=== PATIENT | female | born 1995 | race Hispanic/Latino ===

== ENCOUNTER 2023-08-16 21:21 | Emergency (ER) | payer BC ==
[~2023-08-16] VITALS: Ht 165.1 cm; Wt 61.2 kg
[2023-08-16] MEDS ORDERED: ROCURONIUM BROMIDE 10MG/1ML 5ML VL IV ONE (21:22)
[2023-08-16 21:42] LABS: EOSINOPHILS # (AUTO) 0.17 K/uL (0.00-0.70); EOSINOPHILS % (AUTO) 3.3 % (0.0-8.0); HEMATOCRIT 36.5 % (36-48); IMMATURE GRANULOCYTE ABSOLUTE 0.01 K/uL (0-1); LYMPHOCYTES # (AUTO) 2.9 K/uL (1.0-4.8); MEAN CORPUSCULAR HEMOGLOBIN 29.2 pg (27.0-33.0); MEAN CORPUSCULAR VOLUME 86.1 fL (79-99); MONOCYTES # (AUTO) 0.5 K/uL (0.1-1.0); MONOCYTES % (AUTO) 8.7 % (3.0-13.0); NEUTROPHILS # (AUTO) 1.7 K/uL (1.8-7.7); NEUTROPHILS % (AUTO) 32.8 % (40.0-77.0); PLATELET COUNT (AUTO) 270 K/uL (130-400); RED BLOOD CELL COUNT(AUTO) 4.24 MIL/uL (4.00-5.50); RED CELL DISTRIBUTION WIDTH 12.7 % (11.0-15.5); WHITE BLOOD COUNT (AUTO) 5.2 K/uL (4.8-10.8)
[2023-08-16 21:50] LABS: APPEARANCE,URINE CLEAR (CLEAR); BILIRUBIN,URINE NEGATIVE (NEGATIVE); COLOR,URINE YELLOW (YELLOW); GLUCOSE, URINE (UA) NEGATIVE (NEGATIVE); KETONES,URINE NEGATIVE (NEGATIVE); LEUKOCYTE ESTERASE ,URINE NEGATIVE Leu/uL (NEGATIVE); NITRATE,URINE NEGATIVE (NEGATIVE); OCCULT BLOOD,URINE NEGATIVE (NEGATIVE); PROTEIN,URINE NEGATIVE (NEGATIVE)
[2023-08-16 21:51] LABS: ADD UA MICROSCOPIC NO
[2023-08-16 21:52] LABS: HCG,QUALITATIVE URINE NEGATIVE (NEGATIVE)
[2023-08-16] MEDS: LEVETIRACETAM 500 MG/5 ML SD VIAL IV SCH ×3 (22:00→23:00)
[2023-08-16] MEDS: DIAZEPAM 5 MG/ML 2 ML SYG IVP ONE (22:11)
[2023-08-16] MEDS: DIAZEPAM 5 MG/ML 2 ML SYG ONE (22:14)
[2023-08-16 22:17] LABS: AMPHET/METH SCREEN,URINE NEGATIVE (NEGATIVE); BARBITURATE SCREEN, URINE NEGATIVE (NEGATIVE); BENZODIAZEPINES SCREEN,URINE NEGATIVE (NEGATIVE); CANNABINOID SCREEN,URINE NEGATIVE (NEGATIVE); COCAINE SCREEN,URINE NEGATIVE (NEGATIVE); OPIATE SCREEN,URINE NEGATIVE (NEGATIVE); PHENCYCLIDINE SCREEN,URINE NEGATIVE (NEGATIVE)
[2023-08-16 22:20] LABS: ALBUMIN 3.7 g/dL (3.5-5.0); BILIRUBIN,TOTAL 0.2 mg/dL (0.2-1.0); CREATININE 0.7 mg/dL (0.5-1.0); POTASSIUM 4.2 mmol/L (3.5-5.1); TOTAL PROTEIN, SERUM 7.2 g/dL (6.0-8.3)
[2023-08-16] MEDS: LORAZEPAM 2 MG/ML 1 ML VIAL IVP ONE (22:30)
[2023-08-16] MEDS ORDERED: PHARMACY COMMUNICATION MISC SCH (22:30)
[2023-08-16] MEDS: FENTANYL 1000MCG+NS 100ML 100 ML IV SCH (22:57)
[2023-08-16] MEDS: ETOMIDATE 20MG VIAL IVP ONE (22:57)
[2023-08-16] MEDS: ROCURONIUM BROMIDE IV SCH (22:57)
[2023-08-16] MEDS: [UNRECOGNIZED DRUG - OTHER] IV SCH (22:57)
[2023-08-16] MEDS: PROPOFOL 1000 MG/100 ML IV PRN (22:57)
[2023-08-16 23:04] VITALS: PULSE 150; O2SAT 100
[2023-08-16 23:24] LABS: INR <= 0.93 (0.85-1.15)
[2023-08-16 23:25] LABS: PARTIAL THROMBOPLASTIN TIME 26.3 SEC (26.3-35.5)
[2023-08-16 23:35] VITALS: PULSE 138; O2SAT 100
[2023-08-17] MEDS: LORAZEPAM 2 MG/ML 1 ML VIAL ONE (00:07)
[2023-08-17 01:07] LABS: ABG BASE EXCESS -2.3 mmol/L (-2.0-3.0); ABG HCO3 21.3 mmol/L (21.0-28.0); ABG OXYGEN SATURATION 99.9 % (95.0-99.0); ABG PCO2 34 mmHg (32-45); ABG PH 7.419 (7.350-7.450); PO2, ARTERIAL BG > 500.0 mmHg (83.0-108.0); VENT MODE, BG ACVC (ROOM AIR)
[2023-08-17 01:10] VITALS: PULSE 96; O2SAT 100
[2023-08-17] MEDS ORDERED: NOREPINEPHRIN 4MG/NS 250ML 250 ML IV SCH (01:30)
[2023-08-17] MEDS: NOREPINEPHRIN 4MG/NS 250ML 250 ML IV ONE (02:02)
[2023-08-17 03:20] VITALS: PULSE 94; O2SAT 100
[2023-08-17 03:44] VITALS: BP 114/65; PULSE 70; RESP 18; O2SAT 100
== END 2023-08-17 04:01 | disposition short-term general hospital (02) ==
LOC: EDH 21:21
DX: G40.901 Epilepsy, unspecified, not intractable, with status epilepticus (principal); F10.10 Alcohol abuse, uncomplicated; D69.6 Thrombocytopenia, unspecified; Z98.890 Other specified postprocedural states; Z88.8 Allergy status to other drugs, medicaments and biological substances
CPT/HCPCS: 80053; 82803; 80305; 85025; 85610; 85730; 83605; 84146; 81003; 81025; 36415 ×2; 71045; 70450; 96365; 96366; 99291; 99292; 96375; 96368; 94002; 31500; 80177; 94003; 36600; J1953 ×3; J3490 ×3; J3360; J2060; A9900; J2704

== ENCOUNTER 2023-10-27 14:52 | Emergency (ER) | payer BC ==
[~2023-10-27] VITALS: Ht 152.4 cm; Wt 60.3 kg
[2023-10-27] MEDS: LORAZEPAM 2 MG/ML 1 ML VIAL IVP ONE (15:03)
[2023-10-27] MEDS: 0.9%NACL 1000ML 1,000 ML IV ONE (15:04)
[2023-10-27] MEDS: LEVETIRACETAM 500 MG/5 ML SD VIAL IV SCH (15:04)
[2023-10-27 15:25] LABS: BASOPHILS # (AUTO) 0.01 K/uL (0.00-0.20); BASOPHILS % (AUTO) 0.2 % (0.0-5.0); EOSINOPHILS # (AUTO) 0.12 K/uL (0.00-0.70); EOSINOPHILS % (AUTO) 2.1 % (0.0-8.0); HEMATOCRIT 36.7 % (36-48); IMMATURE GRANULOCYTE ABSOLUTE 0.01 K/uL (0-1); LYMPHOCYTES # (AUTO) 1.8 K/uL (1.0-4.8); MEAN CORPUSCULAR HEMOGLOBIN 29.2 pg (27.0-33.0); MEAN CORPUSCULAR HGB CONC 32.7 g/dL (32.0-36.0); MEAN CORPUSCULAR VOLUME 89.3 fL (79-99); MONOCYTES # (AUTO) 0.5 K/uL (0.1-1.0); MONOCYTES % (AUTO) 8.3 % (3.0-13.0); NEUTROPHILS # (AUTO) 3.3 K/uL (1.8-7.7); NEUTROPHILS % (AUTO) 58.2 % (40.0-77.0); PLATELET COUNT (AUTO) 283 K/uL (130-400); RED BLOOD CELL COUNT(AUTO) 4.11 MIL/uL (4.00-5.50); WHITE BLOOD COUNT (AUTO) 5.7 K/uL (4.8-10.8)
[2023-10-27 15:41] LABS: CARBON DIOXIDE 24 mmol/L (21-32); CHLORIDE 106 mmol/L (101-111); CREATININE 0.7 mg/dL (0.5-1.0); GLOMERULAR FILTR. RATE CALC 122 mL/min (>90); GLUCOSE,RANDOM 94 mg/dL (70-105); POTASSIUM 3.9 mmol/L (3.5-5.1); SODIUM SERUM 140 mmol/L (136-145); UREA NITROGEN, BLOOD 11 mg/dL (7-18)
[2023-10-27 15:44] LABS: ACETAMINOPHEN < 1 mcg/mL (10-30); ALANINE AMINOTRANSFERASE 17 U/L (12-78); ALBUMIN 3.7 g/dL (3.5-5.0); ALCOHOL, BLOOD < 3 mg/dL (0-10); ASPARTATE AMINOTRANSFERASE 12 U/L (10-37); BILIRUBIN,TOTAL 0.2 mg/dL (0.2-1.0); SALICYLATE < 2.8 mg/dL (2.8-20.0); TOTAL PROTEIN, SERUM 6.9 g/dL (6.0-8.3)
[2023-10-27 15:45] LABS: APPEARANCE,URINE CLOUDY (CLEAR); BILIRUBIN,URINE NEGATIVE (NEGATIVE); COLOR,URINE YELLOW (YELLOW); GLUCOSE, URINE (UA) NEGATIVE (NEGATIVE); KETONES,URINE NEGATIVE (NEGATIVE); LEUKOCYTE ESTERASE ,URINE 500 Leu/uL (NEGATIVE); NITRATE,URINE NEGATIVE (NEGATIVE); OCCULT BLOOD,URINE NEGATIVE (NEGATIVE); PH,URINE 6.5 (5.0-8.0); PROTEIN,URINE 10 mg/dL (NEGATIVE); UROBILINOGEN,URINE 0.2 mg/dL (0.2-1.0)
[2023-10-27 15:51] LABS: AMPHET/METH SCREEN,URINE NEGATIVE (NEGATIVE); BARBITURATE SCREEN, URINE NEGATIVE (NEGATIVE); BENZODIAZEPINES SCREEN,URINE POSITIVE (NEGATIVE); CANNABINOID SCREEN,URINE NEGATIVE (NEGATIVE); COCAINE SCREEN,URINE NEGATIVE (NEGATIVE); OPIATE SCREEN,URINE NEGATIVE (NEGATIVE); PHENCYCLIDINE SCREEN,URINE NEGATIVE (NEGATIVE)
[2023-10-27 15:52] LABS: ADD UA MICROSCOPIC YES
[2023-10-27 15:57] LABS: BACTERIA,URINE FEW /HPF (None Seen); MUCUS,URINE RARE LPF (None Seen); SQUAMOUS EPITHELIAL CELL,UR MANY /HPF (0-2); WBC,URINE 51-100 /HPF (0-1)
[2023-10-27] MEDS ORDERED: NITR100C4 PO (17:31)
[2023-10-27 17:37] VITALS: BP 114/67; PULSE 77; RESP 16; O2SAT 99
== END 2023-10-27 17:52 | disposition home or self-care (01) ==
LOC: EDH 14:52
DX: G40.909 Epilepsy, unspecified, not intractable, without status epilepticus (principal); F06.8 Other specified mental disorders due to known physiological condition; N39.0 Urinary tract infection, site not specified; Z88.8 Allergy status to other drugs, medicaments and biological substances; Z88.6 Allergy status to analgesic agent
CPT/HCPCS: 99284; 96365; 71045; 96375; 80053; 80305; 84703; 85025; 87086; 36415; 93005; 81001; G0481; J1953; J7030; J2060

== ENCOUNTER 2023-12-08 12:07 | Emergency (ER) | payer SELFPAY ==
[~2023-12-08] VITALS: Ht 152.4 cm; Wt 61.2 kg
[~2023-12-08 12:07] MED LIST: NITR100C4 PO
[2023-12-08 12:52] VITALS: BP 110/63; PULSE 86; RESP 17; O2SAT 99
[2023-12-08 13:35] LABS: COVID19 (SARS ANTIGEN RAPID) PRESUMPTIVE NEGATIVE (NEGATIVE); INFLUENZA TYPE A Negative For Type A (NEGATIVE); INFLUENZA TYPE B Negative For Type B (NEGATIVE)
[2023-12-08 13:39] LABS: RAPID GROUP A STREP negative (NEGATIVE)
[2023-12-08] MEDS ORDERED: BENZ-39 PO (14:11)
[2023-12-08] MEDS ORDERED: IBUP-2077 PO (14:11)
[2023-12-08] MEDS ORDERED: ALBUHFA IH (14:11)
[2023-12-08] MEDS: IBUPROFEN 800 MG TAB PO ONE (14:14)
== END 2023-12-08 15:14 | disposition home or self-care (01) ==
LOC: EDH 12:07
DX: B34.9 Viral infection, unspecified (principal); Z20.822 Contact with and (suspected) exposure to COVID-19; F41.9 Anxiety disorder, unspecified; F32.A Depression, unspecified; G40.909 Epilepsy, unspecified, not intractable, without status epilepticus; Z88.8 Allergy status to other drugs, medicaments and biological substances; Z79.2 Long term (current) use of antibiotics
CPT/HCPCS: 71045; 81025; 87426; 87804; 87880

== ENCOUNTER 2024-01-15 12:13 | Emergency (ER) | payer OTHER ==
[~2024-01-15] VITALS: Ht 165.1 cm; Wt 63.5 kg
[~2024-01-15 12:13] MED LIST changes: +ALBUHFA IH; +BENZ-39 PO; +IBUP-2077 PO
[2024-01-15 12:39] VITALS: BP 119/75; PULSE 89; RESP 20; TEMP 98.3
[2024-01-15] MEDS: CYCLOBENZAPRINE HCL 10 MG TABLET PO ONE (13:39)
[2024-01-15] MEDS: ondanSETRON ODT 4MG TAB SL ONE (13:39)
[2024-01-15] MEDS: ketOROlac 60 MG VIAL (30MG/ML) IM ONE (13:40)
[2024-01-15] MEDS: HYDROcodone/APAP 5/325 1 TAB TABLET PO ONE (13:41)
== END 2024-01-15 14:02 | disposition home or self-care (01) ==
LOC: EDH 12:13
DX: G44.209 Tension-type headache, unspecified, not intractable (principal); R42 Dizziness and giddiness; F41.9 Anxiety disorder, unspecified; F32.A Depression, unspecified; G40.909 Epilepsy, unspecified, not intractable, without status epilepticus; Z88.8 Allergy status to other drugs, medicaments and biological substances; Z79.899 Other long term (current) drug therapy
CPT/HCPCS: 96372; 99284; J1885